=== PATIENT | male | born 1985 | race Caucasian/White ===

== ENCOUNTER 2021-02-16 06:43 | Emergency (ER) | payer BC ==
--- NOTE | 2021-02-16 07:57 | ER ---
Nurse's Notes [facility] Name: Thuan Mas Age: 35 yrs Sex: Male : 1985 Arrival Date: 02/16/2021 Time: 06:43 Bed Waiting Private MD: Diagnosis: Allergic contact dermatitis, unspecified cause;Allergic dermatitis of left upper eyelid;Allergic dermatitis of left lower eyelid Presentation: 02/16 07:10 Chief complaint: Patient states: was clearing out land and got into some poison [place] on em , reports archie. eye swelling noted in triage. Coronavirus screen: Client denies travel out of the [place] in the last 14 days. Ebola Screen: Patient negative for fever greater than or equal to 101.5 degrees Fahrenheit, and additional compatible Ebola Virus Disease symptoms Patient denies exposure to infectious person. Patient denies travel to an Ebola-affected area in the 21 days before illness onset. No symptoms or risks identified at this time. Onset: The symptoms/episode began/occurred yesterday. Anaphylaxis evaluation, no signs or symptoms of anaphylaxis were noted. Initial Sepsis Screen: Does the patient meet any 2 criteria? No. Patient's initial sepsis screen is negative. Does the patient have a suspected source of infection? No. Patient's initial sepsis screen is negative. Risk Assessment: Do you want to hurt yourself or someone else? Patient reports no desire to harm self or others. Onset of symptoms was February 16, 2021. 07:10 Method Of Arrival: Ambulatory em 07:10 Acuity: TISHA 2 em Historical: - Allergies: 07:12 No Known Allergies; em - PMHx: 07:12 Hypertensive disorder; em - PSHx: 07:12 None; em - Immunization history:: Client reports having NOT received the Covid vaccine. - Social history:: Smoking status: Patient denies any tobacco usage or history of. Screenin:10 Abuse screen: Denies threats or abuse. Nutritional screening: No deficits noted. em Tuberculosis screening: No symptoms or risk factors identified. Fall Risk None identified. Assessment: 07:10 General: Appears in no apparent distress. comfortable, Behavior is calm, cooperative, em appropriate for age. Pain: Denies pain. Neuro: Level of Consciousness is awake, alert, obeys commands, Oriented to person, place, time, situation. Cardiovascular: Capillary refill < 3 seconds Patient's skin is warm and dry. Respiratory: Airway is patent Respiratory effort is even, unlabored, Respiratory pattern is regular, symmetrical, Breath sounds are clear Denies shortness of breath. EENT: Eyes swelling noted . Derm: Skin is intact. Musculoskeletal: Capillary refill < 3 seconds, Range of motion: intact in all extremities. Vital Signs: 07:10 BP 159 / 103; Pulse 64; Resp 18; Temp 97.9; Pulse Ox 99% on R/A; em ED Course: 06:43 Patient arrived in ED. bp1 07:10 Patient has correct armband on for positive identification. em 07:12 Triage completed. em 07:12 Arm band placed on. em 07:41 Sujit Beckham MD is Attending Physician. tw4 07:45 Inserted saline lock: 20 gauge in right antecubital area, using aseptic technique. em 08:08 Ba Li RN is Primary Nurse. em 08:09 No provider procedures requiring assistance completed. IV discontinued, intact, em bleeding controlled, No redness/swelling at site. Pressure dressing applied. Administered Medications: 07:45 Drug: SOLU-Medrol (methylPrednisoLONE) 125 mg Route: IVP; Site: right antecubital; em 08:08 Follow up: Response: No adverse reaction em 07:47 Drug: Benadryl (diphenhydrAMINE) 50 mg Route: IVP; Site: right antecubital; em 08:09 Follow up: Response: No adverse reaction em 07:49 Drug: Pepcid (famotidine) 20 mg Route: IVP; Site: right antecubital; em 08:09 Follow up: Response: No adverse reaction em Outcome: 07:56 Discharge ordered by . tw4 08:09 Discharged to home ambulatory, with family. em 08:09 Condition: stable 08:09 Discharge instructions given to patient, family, Instructed on discharge instructions, follow up and referral plans. medication usage, Demonstrated understanding of instructions, follow-up care, medications, Prescriptions given X 3. 08:10 Patient left the ED. em Signatures: Ba Li RN RN em Sujit Beckham MD MD tw4 Chetna Maynard bp1
--- NOTE | 2021-02-16 07:57 | EDPHYS ---
Physician Documentation [facility] Name: Thuan Mas Age: 35 yrs Sex: Male : 1985 Arrival Date: 02/16/2021 Time: 06:43 Bed Waiting Private MD: ED Physician Sujit Beckham HPI: 02/16 08:03 This 35 yrs old Male presents to ER via Ambulatory with complaints of tw4 Allergic Reaction. 08:03 The patient presents with localized swelling. Onset: The symptoms/episode tw4 began/occurred 2 day(s) ago. Associated signs and symptoms: The patient has no apparent associated signs or symptoms. Possible causes: poison kylah. At home the patient or guardian has treated the symptoms with Benadryl. Severity of symptoms: At their worst the symptoms were moderate in the emergency department the symptoms are unchanged. The patient has not experienced similar symptoms in the past. Historical: - Allergies: 07:12 No Known Allergies; em - PMHx: 07:12 Hypertensive disorder; em - PSHx: 07:12 None; em - Immunization history:: Client reports having NOT received the Covid vaccine. - Social history:: Smoking status: Patient denies any tobacco usage or history of. ROS: 08:03 Constitutional: Negative for fever, chills, and weight loss, ENT: Negative for injury, tw4 pain, and discharge, Neck: Negative for injury, pain, and swelling, Cardiovascular: Negative for chest pain, palpitations, and edema, Respiratory: Negative for shortness of breath, cough, wheezing, and pleuritic chest pain, Abdomen/GI: Negative for abdominal pain, nausea, vomiting, diarrhea, and constipation, Back: Negative for injury and pain, MS/Extremity: Negative for injury and deformity, Skin: Negative for injury, rash, and discoloration. 08:03 Eyes: Positive for swelling. Exam: 08:03 Constitutional: This is a well developed, well nourished patient who is awake, alert, tw4 and in no acute distress. Head/Face: Normocephalic, atraumatic. Chest/axilla: Normal chest wall appearance and motion. Nontender with no deformity. No lesions are appreciated. Cardiovascular: Regular rate and rhythm with a normal S1 and S2. No gallops, murmurs, or rubs. Normal PMI, no JVD. No pulse deficits. Respiratory: Lungs have equal breath sounds bilaterally, clear to auscultation and percussion. No rales, rhonchi or wheezes noted. No increased work of breathing, no retractions or nasal flaring. Abdomen/GI: Soft, non-tender, with normal bowel sounds. No distension or tympany. No guarding or rebound. No evidence of tenderness throughout. Skin: Warm, dry with normal turgor. Normal color with no rashes, no lesions, and no evidence of cellulitis. MS/ Extremity: Pulses equal, no cyanosis. Neurovascular intact. Full, normal range of motion. Neuro: Awake and alert, GCS 15, oriented to person, place, time, and situation. Cranial nerves II-XII grossly intact. Motor strength 5/5 in all extremities. Sensory grossly intact. Cerebellar exam normal. Normal gait. Vital Signs: 07:10 BP 159 / 103; Pulse 64; Resp 18; Temp 97.9; Pulse Ox 99% on R/A; em MDM: 07:56 Patient medically screened. tw4 08:05 Differential diagnosis: anaphylaxis, Status Asthmaticus. Data reviewed: vital signs, tw4 nurses notes. Data interpreted: Pulse oximetry: Interpretation: normal. Counseling: I had a detailed discussion with the patient and/or guardian regarding: the historical points, exam findings, and any diagnostic results supporting the discharge/admit diagnosis. Special discussion: I discussed with the patient/guardian in detail that at this point there is no indication for admission to the hospital. It is understood, however, that if the symptoms persist or worsen the patient needs to return immediately for re-evaluation. Administered Medications: 07:45 Drug: SOLU-Medrol (methylPrednisoLONE) 125 mg Route: IVP; Site: right antecubital; em 08:08 Follow up: Response: No adverse reaction em 07:47 Drug: Benadryl (diphenhydrAMINE) 50 mg Route: IVP; Site: right antecubital; em 08:09 Follow up: Response: No adverse reaction em 07:49 Drug: Pepcid (famotidine) 20 mg Route: IVP; Site: right antecubital; em 08:09 Follow up: Response: No adverse reaction em Disposition Summary: 02/16/21 07:56 Discharge Ordered Location: Home tw4 Problem: new tw4 Symptoms: are unchanged tw4 Condition: Stable tw4 Diagnosis - Allergic contact dermatitis, unspecified cause tw4 - Allergic dermatitis of left upper eyelid tw4 - Allergic dermatitis of left lower eyelid tw4 Followup: tw4 - With: Private Physician - When: Upon discharge from the Emergency Department - Reason: Recheck today's complaints, Continuance of care, Re-evaluation by your physician Discharge Instructions: - Discharge Summary Sheet tw4 - Allergies, Adult tw4 - Contact Dermatitis tw4 - Poison Kyl[place] Dermatitis tw4 Forms: - Medication Reconciliation Form tw4 - Thank You Letter tw4 - Antibiotic Education tw4 - Prescription Opioid Use tw4 Prescriptions: - Benadryl 25 mg Oral Capsule - take 1 capsule by ORAL route every 6 hours As needed; 30 tablet; Refills: 0, tw4 Product Selection Permitted - Pepcid 20 mg Oral Tablet - take 1 tablet by ORAL route every 12 hours for 10 days; 20 tablet; Refills: 0, tw4 Product Selection Permitted - Medrol (Russ) 4 mg Oral Tablets, Dose Pack - take 1 tablet by ORAL route as directed - follow package instructions; 1 tw4 packet; Refills: 0, Product Selection Permitted Signatures: Ba Li, RN RN Sujit Pozo MD MD tw4
[2021-02-16] MEDS ORDERED: METHYLPREDNISOLONE 125 MG INJ ONE (08:05)
[2021-02-16] MEDS ORDERED: FAMOTIDINE 20 MG/2 ML VIAL IV ONE (08:05)
[2021-02-16] MEDS ORDERED: DIPHENHYDRAMINE 50 MG/ML VIAL ONE (08:05)
[2021-02-16 08:22] VITALS: BP 159/103; TEMP 97.9; O2SAT 99
== END 2021-02-16 08:10 | disposition home or self-care (01) ==
LOC: ER 06:43
DX: L23.7 Allergic contact dermatitis due to plants, except food (principal); H01.115 Allergic dermatitis of left lower eyelid; H01.114 Allergic dermatitis of left upper eyelid; I10 Essential (primary) hypertension
CPT/HCPCS: 96375; 96374; 99283; J1200; J2930